=== PATIENT | female | born 1945 | race Caucasian/White ===

== ENCOUNTER 2025-01-01 07:58 | Day surgery (SDC) | payer MEDICARE, OTHER ==
[2025-01-01] MEDS ORDERED: Sodium Chloride 0.9(Preservative Free) 10 ML IJ ONE (07:59)
[2025-01-01] MEDS ORDERED: dexAMETHasone sodium phosphate IJ ONE (07:59)
[2025-01-01] MEDS ORDERED: LIDOCAINE HCL 1% AMPUL 5 ML IJ ONE (07:59)
[2025-01-01] MEDS ORDERED: propofoL IV ONE (09:15)
[2025-01-01] MEDS ORDERED: Sodium Chloride 0.9% 1000 ML 1,000 ML ONE (09:38)
--- NOTE | 2025-01-01 10:28 | XRAY ---
Indication: Left piriformis injection. Intraoperative fluoroscopy provided for 8 seconds. Single digital spot images submitted for interpretation demonstrates posterior needle tip projecting over left piriformis. Small amount of contrast injected for needle tip placement. Correlate with intraoperative findings/report.
--- NOTE | 2025-01-01 10:28 | XRAY ---
Indication: Left L4-S1 transforaminal ELIAZAR. Intraoperative fluoroscopy provided for 1 minute 2 seconds. 4 digital spot images submitted for interpretation demonstrates posterior needle tips projecting over expected left L4 and L5 nerve roots. Small amount of contrast injected for needle tip placement. Correlate with intraoperative findings/report.
--- NOTE | 2025-01-01 11:06 | XRAY ---
8 seconds of fluoroscopy used in surgery for a left piriformis injection.
--- NOTE | 2025-01-01 11:06 | XRAY ---
1 minute 2 seconds of fluoroscopy used in surgery for a left L4-S1 transforaminal ELIAZAR.
== END 2025-01-01 09:56 | disposition home or self-care (01) ==
LOC: SDC-PAIN 07:58
PROVIDERS: ATTEND Psychiatry & Neurology Pain Medicine
DX: M54.16 Radiculopathy, lumbar region (principal); E11.9 Type 2 diabetes mellitus without complications; M79.18 Myalgia, other site
CPT/HCPCS: 20552; 64483; 64484; 72100; 72170; 77002; 82947; 99100; J1100; J2704; Q9966